=== PATIENT | female | born 1980 | race Caucasian/White ===

== ENCOUNTER 2023-03-20 04:34 | Emergency (ER) | payer BC, SELFPAY ==
[2023-03-20 04:39] VITALS: BP 149/82; PULSE 110; RESP 22; TEMP 36.6; O2SAT 100; BMI 26.6
--- NOTE | 2023-03-20 04:42 | ECG_ITS ---
APPROVED REPORT Exam: Resting ECG HR:118 bpm ECG Measurements Heart Rate 118 AXES GA 171 P 66 QRSd 80 QRS 51 QT 348 T 60 QTc 418 Conclusion SINUS TACHYCARDIA LOW QRS VOLTAGE IN EXTREMITY LEADS [QRS DEFLECTION < 0.5 mV IN LIMB LEADS] ABNORMAL RHYTHM ECG UNCONFIRMED REPORT Electronically signed by : Fernando Blunt MD 03/21/2023 13:52:42
--- NOTE | 2023-03-20 04:51 | XR_ITS ---
PROCEDURE INFORMATION: Exam: XR Chest Exam date and time: 03/20/2023 5:20 AM Age: 42 years old Clinical indication: Other: Palpitations; Additional info: Heart palpitations TECHNIQUE: Imaging protocol: Radiologic exam of the chest. Views: 2 views. COMPARISON: No relevant prior studies available. FINDINGS: Lungs: Unremarkable. No consolidation. Pleural spaces: Unremarkable. No pleural effusion. No pneumothorax. Heart/Mediastinum: Unremarkable. No cardiomegaly. Bones/joints: Unremarkable. IMPRESSION: No acute findings.
[2023-03-20 05:00] VITALS: BP 125/71; PULSE 100; O2SAT 100
[2023-03-20 05:09] LABS: Basophils # 0.1 K/mm3 (0-0.2); Basophils % 0.5 % (0.1-2.0); Eosinophils # 0.2 K/mm3 (0.0-0.4); Eosinophils % 1.5 % (0.1-12.0); Hematocrit 40.4 % (37.0-47.0); Hemoglobin 13.5 g/dL (12.2-16.2); Lymphocytes # 2.5 K/mm3 (0.7-4.5); Lymphocytes % 23.9 % (10-50); Mean Corpuscular HGB Conc 33.3 g/dL (31.8-35.4); Mean Corpuscular Hemoglobin 29.7 pg (27.0-31.2); Mean Corpuscular Volume 89.1 fl (81-99); Mean Platelet Volume 7.5 fl (7.4-10.4); Monocytes # 0.3 K/mm3 (0.1-1.0); Monocytes % 3.2 % (1.7-9.3); Neutrophils # 7.4 K/mm3 (1.8-7.8); Platelet Count 363 K/mm3 (142-424); Red Blood Count 4.53 M/mm3 (4.20-5.40); White Blood Count 10.4 K/mm3 (4.8-10.8)
[2023-03-20 05:16] LABS: Magnesium 2.1 mg/dl (1.6-2.3)
[2023-03-20 05:17] LABS: Alanine Aminotransferase 26 U/L (12-78); Albumin Level 4.4 g/dl (3.5-5.0); Albumin/Globulin Ratio 1.4 (1.1-1.8); Alkaline Phosphatase 92 U/L (38-126); Anion Gap 14.7 mEq/L (5-15); Aspartate Amino Transferase 34 U/L (14-36); Bilirubin,Total 0.5 mg/dl (0.2-1.3); Blood Urea Nitrogen 18 mg/dl (7-17); Calcium 8.9 mg/dl (8.4-10.2); Carbon Dioxide 23 mmol/L (22.0-30.0); Chloride 105 mmol/L (98-107); Creatinine Clearance Estimated 114 mL/min (50-200); Estimated Glomerular Filt Rate 91 ml/min (>60); GFR (African American) 110 ML/MIN (>60); Globulin 3.1 g/dL (1.3-3.2); Glucose 130 mg/dl (74-100); Potassium 3.7 mmoL/L (3.5-5.1); Sodium 139 mmol/L (136-145); Total Protein,Serum 7.5 g/dl (6.3-8.2)
[2023-03-20 05:26] LABS: NT Pro Brain Natriuretic Pep. < 20.0 pg/mL (0-125)
[2023-03-20 05:35] LABS: T4 (Thyroxine) 9.1 ug/dl (5.53-11.0)
[2023-03-20 05:44] LABS: Troponin I < 0.01 ng/ml (0.00-0.034)
[2023-03-20 05:48] LABS: Thyroid Stimulating Hormone 1.67 uIU/mL (0.465-4.68)
[2023-03-20 06:00] VITALS: BP 124/68; PULSE 110; RESP 15; O2SAT 99
[2023-03-20 06:30] VITALS: BP 115/73; PULSE 99; RESP 19; O2SAT 100
--- NOTE | 2023-03-20 06:36 | PC.NURSE ---
Pt resting in bed with lights off. No needs voiced at this time.
--- NOTE | 2023-03-20 06:43 | [facility].EDARPALP ---
Discharge Plan Disposition Patient Disposition: Home, Self-Care Prescriptions Prescriptions: New bisoprolol fumarate 5 mg tablet 5 mg PO DAILY Qty: 14 0RF No Action fiber Tablet 1 tab PO DIRECTED multivit [id number] 1-dha 18 mg iron- 1 mg-300 mg Capsule 1 cap PO DAILY Referrals Follow up/Referrals: Iram Woodruff MD [Primary Care Provider] - See instructions Luc Glaser MD [Staff Physician] - See instructions Clinical Impressions Clinical Impression: Palpitations Instructions Patient Instructions: DI for Palpitations Discharge ED Provider: Donnie (ED)Johnnie Arrhythmia/Palpitations HPI General Chief Complaint: Arrhythmia/Palpitations Stated Complaint: Unable to sleep,high heat rate Time Seen by Provider: 03/20/23 06:43 Mode of Arrival: Family Vehicle Source of Information: Patient, Spouse and Medical Record Limitations: No Limitations History of Present Illness HPI narrative: pt with elevated hr w/o chest pain or loc complaint: palpitations Onset (ago): hour(s) Duration: intermittent Severity: moderate Context: occurred during rest Associated symptoms: denies other symptoms Related Data Home Medications Medication Instructions Recorded Confirmed fiber 1 tab PO DIRECTED Diet 03/20/23 03/20/23 supplement multivit no.40-iron 18 mg-folate 1 cap PO DAILY Supplement 03/20/23 03/20/23 comb no.1 1 mg-dha 300 mg capsule Previous Rx's Medication Instructions Recorded bisoprolol fumarate 5 mg tablet 5 mg PO DAILY #14 tabs 03/20/23 Allergies Allergy/AdvReac Type Severity Reaction Status Date / Time Aspirin Allergy Unknown Uncoded 05/16/18 13:44 From Penicillin V Potassium Allergy Unknown Uncoded 05/16/18 13:44 Penicillin Allergy Unknown Uncoded 05/16/18 13:44 [facility] Disclaimer: The information contained in this section may have been updated after the patient was seen, as this information can be updated by other users. Social History Smoking Status: Never smoker alcohol intake: never substance use type: denies use current occupational status: employed Travel in the last 8 weeks: None housing: house ROS Obtained: Yes All systems reviewed & no additional complaints except as documented Physical Exam General General appearance: alert Head Head exam: normocephalic Eye Eye exam: Present PERRL and EOMI ENT ENT exam: Present normal oropharynx Neck Neck exam: Present trachea midline Respiratory Respiratory exam: Present normal lung sounds bilaterally; Absent respiratory distress Cardiovascular Cardiovascular exam: Present regular rate; Absent systolic murmur Abdominal Exam Abdominal exam: Present soft Extremities Exam Extremities exam: Present full ROM Neurological Exam Neurological exam: Present alert, oriented X3 and CN II-XII intact; Absent motor sensory deficit Psychiatric Psychiatric exam: Present normal affect Skin Skin exam: Absent rash Medical Decision Making Medical Records Medical records reviewed: Yes I reviewed the patient's medical records. [place] Inquiry Pt receiving controlled substance: No Vital Signs: 03/20/23 04:39 03/20/23 05:00 03/20/23 06:00 Temperature 97.8 F Temperature Source Oral Pulse Rate 100 H 110 H Pulse Rate [Right Brachial] 110 H Respiratory Rate 22 15 Blood Pressure 125/71 124/68 Blood Pressure [Right Arm] 149/82 H Blood Pressure Mean [Right Arm] 104 Blood Pressure Source [Right Arm] Automatic Cuff Blood Pressure Position [Right Arm] Sitting 02 Sat by Pulse Oximetry 100 100 99 Oxygen Delivery Method Room Air Room Air Room Air 03/20/23 06:30 Temperature Temperature Source Pulse Rate 99 H Pulse Rate [Right Brachial] Respiratory Rate 19 Blood Pressure 115/73 Blood Pressure [Right Arm] Blood Pressure Mean [Right Arm] Blood Pressure Source [Right Arm] Blood Pressure Position [Right Arm] 02 Sat by Pulse Oximetry 100 Oxygen Delivery Method R
[2023-03-20 07:00] VITALS: BP 117/73; PULSE 106; RESP 18; O2SAT 97
[2023-03-20 07:11] VITALS: BP 117/73; PULSE 92; RESP 16; TEMP 36.7; O2SAT 98
== END 2023-03-20 07:24 | disposition home or self-care (01) ==
PROVIDERS: Emergency Provider Emergency Medicine; PCP Family Medicine
DX: R00.2 Palpitations (principal); R00.0 Tachycardia, unspecified
CPT/HCPCS: 71046; 80053; 83735; 83880; 84436; 84443; 84484; 85025; 93005; 93225; 93226; 96360; 99285